=== PATIENT | male | born 1935 | race Caucasian/White ===

== ENCOUNTER 2020-12-29 09:43 | Emergency (ER) | payer MEDICARE ==
[2020-12-29 10:21] LABS: BASOPHIL 0.3 % (0-2); EOSINOPHIL 0.2 % (0-7); HCT 47.3 % (42.0-52.0); LYMPHOCYTE 4.8 % (15-48); MCH 30.6 pg (25.0-31.0); MCHC 33.8 g/dL (32.0-36.0); MCV 90.4 fL (78.0-100.0); MONOCYTE 5.6 % (0-12); MPV 11.6 fL (6.0-9.5); NEUTROPHIL 88.5 % (41-80); NRBC 0; PLT 105 K/uL (150-400); RBC 5.23 M/uL (4.70-6.00); RDW 12.8 % (11.5-14.0); WBC 12.4 K/uL (4.0-10.5)
[2020-12-29 10:33] LABS: INR 1.25 (0.9-1.2); PTT 27.8 SECONDS (24.4-34.7)
[2020-12-29 10:43] LABS: LACTIC ACID 1.6 mmol/L (0.4-1.9)
[2020-12-29 10:49] LABS: ALBUMIN 2.7 g/dL (3.4-5.0); BUN/CREAT RATIO (CALC) 19.6 RATIO; CREATININE 0.92 mg/dL (0.67-1.17); GLOBULIN (CALCULATION) 3.7 g/dL; POTASSIUM 3.6 mmol/L (3.5-5.1); TOTAL PROTEIN 6.4 g/dL (6.4-8.2)
[2020-12-29 10:55] LABS: BILIRUBIN NEGATIVE (NEGATIVE); BLOOD 3+ Ery/uL (NEGATIVE); CLARITY CLEAR (CLEAR); COLOR YELLOW (YELLOW); GLUCOSE (U) NORMAL (NORMAL); LEUKOCYTES NEGATIVE Leu/uL (NEGATIVE); NITRITE NEGATIVE (NEGATIVE); PROTEIN 2+ mg/dL (NEGATIVE); pH 7.5 (5.0-9.0)
[2020-12-29 11:10] LABS: BACTERIA 1+
== END 2020-12-29 14:01 | disposition other institution (70) ==
LOC: FER 09:43
PROVIDERS: Emergency Medicine
DX: S06.0X0A Concussion without loss of consciousness, initial encounter (principal); S34.102A Unspecified injury to L2 level of lumbar spinal cord, initial encounter; S32.029A Unspecified fracture of second lumbar vertebra, initial encounter for closed fracture; S50.02XA Contusion of left elbow, initial encounter; S30.1XXA Contusion of abdominal wall, initial encounter; S00.81XA Abrasion of other part of head, initial encounter; J90 Pleural effusion, not elsewhere classified; J18.9 Pneumonia, unspecified organism; R94.5 Abnormal results of liver function studies; I21.4 Non-ST elevation (NSTEMI) myocardial infarction; I44.30 Unspecified atrioventricular block; Z20.822 Contact with and (suspected) exposure to COVID-19; W19.XXXA Unspecified fall, initial encounter
CPT/HCPCS: 36415; 36600; 70450; 71250; 72125; 72128; 72131; 80053; 81001; 82803; 83605; 83880; 84484; 85025; 85610; 85730; 87040; 87076; 87088; 87186; 93005; U0002